=== PATIENT | female | born 1940 | race African-American/Black ===

== ENCOUNTER 2018-03-31 19:56 | Emergency (ER) | payer MEDICARE, BC ==
[~2018-03-31] VITALS: Ht 167.6 cm; Wt 59.0 kg
[2018-03-31 20:04] VITALS: BP 104/55
== END 2018-04-01 00:46 | disposition left against medical advice (07) ==
LOC: ER 19:56
DX: Z53.21 Procedure and treatment not carried out due to patient leaving prior to being seen by health care provider (principal)